=== PATIENT | female | born 1945 | race Caucasian/White ===

== ENCOUNTER 2021-02-03 11:35 | Emergency (ER) | payer MEDICARE, SELFPAY ==
[2021-02-03 11:38] VITALS: BP 123/66; PULSE 80; RESP 14; TEMP 36.8; O2SAT 93; BMI 25.0
[2021-02-03 11:51] VITALS: RESP 22; O2SAT 97
[2021-02-03] MEDS: fentaNYL 50 mcg/mL INJ 2mL 25 MCG IVP (11:51)
--- NOTE | 2021-02-03 11:52 | XRR_ITS ---
PROCEDURE INFORMATION: Exam: XR Left Humerus Exam date and time: 02/03/2021 11:52 AM Age: 76 years old Clinical indication: Pain and injury or trauma; Fall; Blunt trauma (contusions or hematomas); Arm, upper; Left; Upper arm; Injury details: PT was out walking and tripped over tree roots. Severe pain in lt shoulder and some scuffing on RT knee TECHNIQUE: Imaging protocol: XR Left humerus. Views: 2 or more views. COMPARISON: No relevant prior studies available. FINDINGS: Bones/joints: There is anterior dislocation of the left humerus relative to the glenoid. There appears to be a fracture of the proximal left humerus. Soft tissues: Normal. XR/[place] [id number] IMPRESSION: Findings are suggestive of fracture dislocation of the proximal left humerus.If there is desire for further evaluation, a CT scan could be performed.
--- NOTE | 2021-02-03 12:17 | PC.NURSE ---
report received from Kirsten COLLINS
--- NOTE | 2021-02-03 12:23 | W.ED.EXTPRO ---
HPI - Extremity Problem General: Chief complaint: Extremity Injury, Upper Stated complaint: FX L ARM Time Seen by Provider: 02/03/21 11:44 History of Present Illness: HPI Narrative: 76-year-old female had a mechanical fall at home she did not strike her head or lose consciousness she has a significant deformity the left proximal humerus on arrival here she had received 100 mcg of fentanyl in route for pain control she was answering questions but somewhat lethargic due to the medications. She also had complained to EMS of some right knee pain however she is moving it spontaneously in the exam room. MD Complaint: extremity pain and extremity swelling Onset (ago): minute(s) Pain Consistency: constant Location: left and upper extremity Quality: sharp Radiation: none Relieving factors: immobilization and rest Exacerbating factors: range of motion and palpation Associated symptoms: Deny arthralgias, chest pain, fever(s), myalgias, rash or short of breath Review of Systems Const: Denies: fever(s) ENMT: Denies: throat pain, ear or mastoid pain, nasal discharge or nasal congestion Card: Denies: chest pain Resp: Denies: dyspnea, productive cough or non-productive cough GI: Denies: abdominal pain, nausea, vomiting, hematemesis, coffee ground emesis, diarrhea, constipation, bloating, hematochezia or melena : Denies: flank pain, difficulty voiding, dysuria, urinary frequency or urinary urgency Skin/Breast: Denies: rash Physical Exam Const: COMMON NORMALS: no acute distress GENERAL APPEARANCE: cooperative and comfortable ORIENTATION/CONSCIOUSNESS: Yes awake, Yes oriented to person, Yes oriented to place and Yes oriented to time HENMT: COMMON NORMALS: normocephalic, atraumatic and hearing grossly normal bilaterally HEAD & SCALP: normocephalic and atraumatic Neck/C-Spine: COMMON NORMALS: no JVD Lymph: LYMPHATIC: no lymphadenopathy noted and no lymphedema noted Resp: COMMON NORMALS: normal respiratory effort, No retractions, No use of accessory muscles and clear to auscultation bilaterally AUSCULTATION: clear to auscultation bilaterally Cardio: COMMON NORMALS: no JVD, regular rate, regular rhythm and No murmurs present (Cardio) RATE: regular rate RHYTHM: regular rhythm GI: COMMON NORMALS: Soft to palpation and No hepatosplenomegaly present AUSCULTATION: Yes normoactive bowel sounds PALPATION: Yes Soft to palpation, No Tenderness to palpation present (GI), No Guarding due to palpation present (GI) and Yes No hepatosplenomegaly present Extremity: NARRATIVE EXTREMITY EXAM: Pain and deformity consistent with anterior shoulder dislocation suspect proximal humerus fracture confirmed on x-ray see joint reduction note Neuro: SENSORIUM/ORIENTATION: Yes oriented to person, Yes oriented to place and Yes oriented to time Skin: COMMON NORMALS: no rashes or lesions noted GENERAL SKIN EXAM: no rashes or lesions noted Procedures Orthopedic Joint Reduction Joint #1: Time Out Performed: Yes Side: left Joint Reduction Location: shoulder Analgesia: procedural sedation Shoulder Technique Used (if applicable): traction/counter-traction Post-reduction neuro exam: intact Post-reduction vascular: intact Post Reduction X-Ray Obtained: Yes Post Reduction X-Ray Results: reduced Splint Applied: Yes Patient Tolerated Procedure: well Procedural Sedation Indication: fracture/dislocation reduction Preparation: quality assurance monitor final applied, pulse oximeter, capnometry used, supplemental O2 applied, suction/airway equipment at bedside and IV secured IV Etomidate dose (mg): 10 Patient Tolerated Procedure: well Complications: none Interventions: oxygen applied Course Vital Signs: Vital signs: Vital Signs Temperature 98.2 F 02/03/21 11:38 Pulse Rate 68 02/03/21 15:11 Respiratory Rate 18 02/03/21 15:11 Blood Pressure 188/79 02/03/21 15:11 Pulse Oximetry 94 02/03/21 15:11 MDM - Extremity (Nontraumatic) MDM Narrative: Medical decision making narrative: Discussed with Dr. Han. Use etomidate was able with countertraction to reduce the shoulder x-ray confirms patient placed in a shoulder immobilizer follow-up with orthopedist to manage the proximal humerus fracture. Discharge Plan Discharge Patient Disposition: Home Clinical Impression: Dislocation of shoulder region, Fracture of humerus Condition: Stable Prescriptions: New hydrocodone-acetaminophen 5-325 mg tablet 1 tab PO Q6H PRN (Reason: pain) Qty: 25 RF: 0 No Action meloxicam 15 mg tablet 15 mg PO DAILY RF: 0 latanoprost 0.005 % drops 1 drp ophthalmic (eye) DAILY RF: 0 potassium chloride 10 mEq capsule, extended release 10 meq PO BID RF: 0 Tylenol 325 mg Tablet 325 mg PO QID PRN (Reason: Pain) RF: 0 atorvastatin 20 mg tablet 20 mg PO DAILY RF: 0 IBU 800 mg tablet 800 mg PO TID PRN (Reason: Pain) RF: 0 levothyroxine 25 mcg tablet 25 mcg PO DAILY RF: 0 omeprazole 20 mg capsule,delayed release(DR/EC) 20 mg PO DAILY RF: 0 hydrochlorothiazide 25 mg tablet 25 mg PO DAILY RF: 0 furosemide 20 mg tablet 20 mg PO DAILY PRN (Reason: Edema) RF: 0 sertraline 50 mg tablet 50 mg PO DAILY RF: 0 Vitamin D3 1 tab PO DAILY RF: 0 Discharge Orders: Discharge ED (Routine); Ordered 02/03/21 Ordered By: Marcelo Mendez Discharge Diet: Usual diet Discharge Activity: Limit activity as instructed Patient Instructions: Opioid Safety Activity Restrictions/Additional Instructions: No use of the left arm. Maintain arm in the shoulder immobilizer. Case management will call with follow-up to orthopedics Coding Level of Care Code ED Licensed Direct Entry Midwife for Pepe Buchanan Exam Comprehensive
--- NOTE | 2021-02-03 12:25 | XRR_ITS ---
PROCEDURE INFORMATION: Exam: XR Right Knee Exam date and time: 02/03/2021 12:25 PM Age: 76 years old Clinical indication: Pain and injury or trauma; Fall; Blunt trauma; Right; Injury details: PT was out walking and tripped over tree roots. 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 Views: 3 views. COMPARISON: No relevant prior studies available. FINDINGS: Bones/joints: There is no evidence for acute fracture or malalignment. There is mild osteophyte formation at the patellofemoral joint and in the medial compartment. Soft tissues: Normal. XR/XR knee RT 3V* [id number] IMPRESSION: No acute findings.
--- NOTE | 2021-02-03 13:24 | PC.NURSE ---
25 mcg fen given
--- NOTE | 2021-02-03 13:53 | PC.NURSE ---
Allyn AYALA, Anna RN, DR. Mendez and this nurse present for verbal consent and pre sedation check. Pt reports understanding and all needed supplies in room. 10 mg of Etomidate pushed at [address] Mendez manually reduced left should. Immobilizer in place. reduction ended at 1338. Pt awake and back to baseline at 1400. post reduction x ray ordered. awaiting radiology at this time.
--- NOTE | 2021-02-03 13:59 | XRR_ITS ---
PROCEDURE INFORMATION: Exam: XR Left Shoulder Exam date and time: 02/03/2021 1:59 PM Age: 76 years old Clinical indication: Pain; Shoulder; Left; Patient HX: PT fell; Additional info: Post reduction TECHNIQUE: Imaging protocol: XR Left shoulder. Views: 2 or more views. COMPARISON: [place] [id number] 02/03/2021 12:32 PM FINDINGS: Bones/joints: There has been reduction of the left shoulder dislocation. Alignment appears anatomic. There is a comminuted fracture of the proximal left humerus which involves the tuberosities. Soft tissues: Normal. XR/XR shoulder LT min 2V* [id number] IMPRESSION: There has been reduction of the left shoulder dislocation. Alignment appears anatomic.
[2021-02-03 14:00] VITALS: BP 181/94; RESP 17; O2SAT 100
[2021-02-03 14:15] VITALS: BP 202/96; PULSE 67; RESP 22; O2SAT 97
[2021-02-03 15:11] VITALS: BP 188/79; PULSE 68; RESP 18; O2SAT 94
--- NOTE | 2021-02-03 15:16 | PC.NURSE ---
pt vitals during sedation 1334- 67hr, 100% 6L NC, 22rr, 214/103 bp 1344- 65 hr, 100%2L NC, 17RR, 197/91 BP 1350- 68 hr, 100 2LNC, 20 RR, 190/88 bp
--- NOTE | 2021-02-04 13:23 | DCPLANNER ---
Addendum entered by Ruma Terry 02/14/21 10:16: traffic operations manager called the ortho clinic to confirm that a follow up appointment had been scheduled for patient. traffic operations manager spoke with Na at the ortho clinic, was told that patient had follow up with another ortho clinic. Original Note: Principal Automation Engineer received message to schedule follow up with ortho for left clavicle fracture. Called ortho clinic and spoke to Mansi and provided her needed information. She will contact patient with appointment details.
== END 2021-02-03 15:22 | disposition home or self-care (01) ==
PROVIDERS: Emergency Provider Family Medicine
DX: S43.005A Unspecified dislocation of left shoulder joint, initial encounter (principal); S42.202A Unspecified fracture of upper end of left humerus, initial encounter for closed fracture; W19.XXXA Unspecified fall, initial encounter
CPT/HCPCS: 23650; 73030; 73060; 73562; 96374; 99284; J3010; J3490